=== PATIENT | female | born 1955 | race Caucasian/White ===

== ENCOUNTER 2017-05-07 08:07 | Outpatient (CLI) | payer OTHER | END 2017-05-07 20:52 | disposition home or self-care (01) | LOC: SMA 08:07 | PROVIDERS: ATTEND Internal Medicine | DX: Z12.31 Encounter for screening mammogram for malignant neoplasm of breast (principal) | CPT/HCPCS: G0202 ==

== ENCOUNTER 2018-08-22 08:15 | Outpatient (CLI) | payer OTHER | END 2018-08-22 19:42 | disposition home or self-care (01) | LOC: SMA 08:15 | PROVIDERS: ATTEND Internal Medicine | DX: Z12.31 Encounter for screening mammogram for malignant neoplasm of breast (principal) | CPT/HCPCS: 77067 ==

== ENCOUNTER 2018-10-30 11:19 | Emergency (ER) | payer OTHER ==
[~2018-10-30] VITALS: Ht 167.6 cm; Wt 94.3 kg
[2018-10-30 11:20] VITALS: BP_SYST 163
[2018-10-30] MEDS: IBUPROFEN 800 MG TABLET PO ONE (11:48)
[2018-10-30] MEDS: CYCLOBENZAPRINE HCL 10 MG TABLET (FLEXERIL) PO ONE (11:48)
[2018-10-30] MEDS: HYDROcodone/ACETAMIN 5-325 MG TAB (NORCO/ VICODIN) PO ONE (12:16)
[2018-10-30 13:22] VITALS: BP_SYST 147
== END 2018-10-30 13:22 | disposition home or self-care (01) ==
LOC: SED 11:19
DX: S16.1XXA Strain of muscle, fascia and tendon at neck level, initial encounter (principal); R03.0 Elevated blood-pressure reading, without diagnosis of hypertension; V43.52XA Car driver injured in collision with other type car in traffic accident, initial encounter; Y93.89 Activity, other specified; Y92.410 Unspecified street and highway as the place of occurrence of the external cause; Y99.8 Other external cause status
CPT/HCPCS: 72040-TC; 72072-TC; 99284